=== PATIENT | female | born 1965 | race Caucasian/White ===

== ENCOUNTER 2022-09-28 08:15 | Outpatient (RCR) | payer OTHER, SELFPAY | END 2022-09-28 09:36 | disposition home or self-care (01) | PROVIDERS: Visit Provider Physician Assistant Surgical | DX: M25.511 Pain in right shoulder (principal); Z51.89 Encounter for other specified aftercare | CPT/HCPCS: 97110 ==

== ENCOUNTER 2023-01-22 07:20 | Outpatient (CLI) | payer OTHER, SELFPAY | END 2023-01-22 07:21 | disposition home or self-care (01) | LOC: NFLDREF 01-25 12:35 | PROVIDERS: Visit Provider Family Medicine | DX: D64.9 Anemia, unspecified (principal); R53.83 Other fatigue; E78.5 Hyperlipidemia, unspecified; I10 Essential (primary) hypertension; R73.03 Prediabetes | CPT/HCPCS: 80053; 80061; 82728; 84443 ==

== ENCOUNTER 2023-12-30 07:28 | Outpatient (CLI) | payer OTHER, SELFPAY | END 2023-12-30 07:29 | disposition home or self-care (01) | PROVIDERS: Visit Provider Family Medicine | DX: E78.2 Mixed hyperlipidemia (principal); Z13.29 Encounter for screening for other suspected endocrine disorder; Z13.21 Encounter for screening for nutritional disorder | CPT/HCPCS: 80053; 80061; 82306; 82607; 82728; 84443 ==

== ENCOUNTER 2024-01-21 12:34 | Outpatient (CLI) | payer OTHER, SELFPAY | END 2024-01-21 12:35 | disposition home or self-care (01) | LOC: NFLDREF 12:35 | PROVIDERS: Visit Provider Family Medicine | DX: R53.83 Other fatigue (principal); Z11.9 Encounter for screening for infectious and parasitic diseases, unspecified | CPT/HCPCS: 86617 ==

== ENCOUNTER 2025-02-15 07:22 | Outpatient (CLI) | payer OTHER, SELFPAY | END 2025-02-15 07:23 | disposition home or self-care (01) | LOC: NFLDREF 02-20 07:47 | PROVIDERS: Visit Provider Family Medicine | DX: I10 Essential (primary) hypertension (principal); R73.03 Prediabetes | CPT/HCPCS: 80053 ==